=== PATIENT | female | born 1985 | race Caucasian/White ===

== ENCOUNTER → 2017-02-21 | Outpatient (CLI) | payer OTHER ==
[~2017-02-21] MED LIST: RANI150 PO; Z.0.BCPILL PO
[2017-02-21 14:59] LABS: HEMATOCRIT 37.5 % (35.0-46.0); MEAN CORPUSCULAR HEMOGLOBIN 29.1 PG (27.0-34.0); MEAN CORPUSCULAR HGB CONC 35.1 % (32.0-36.0); PLATELET COUNT 183 TH/MM3 (150-450); RED BLOOD COUNT 4.52 MIL/MM3 (4.00-5.30); RED CELL DISTRIBUTION WIDTH 13.3 % (11.6-17.2); REVIEW FLAG FINAL; WHITE BLOOD COUNT 8.1 TH/MM3 (4.0-11.0)
[2017-02-21 15:56] LABS: RUBELLA IGG ANTIBODY 16.9 IU/mL (10.0-500.0); RUBELLA STATUS IMMUNE (IMMUNE)
[2017-02-22 10:54] LABS: RAPID PLASMA REAGIN SCREEN NON-REACTIVE (NON-REACTVE)
== END ==
LOC: CLAB 13:58
PROVIDERS: ATTEND Obstetrics & Gynecology
DX: Z32.01 Encounter for pregnancy test, result positive (principal)
CPT/HCPCS: 36415; 85027; 86592; 86762; 86850; 86900; 86901; 87086; 87340

== ENCOUNTER → 2017-03-12 | Outpatient (CLI) | payer OTHER | LOC: CLAB 12:42 | PROVIDERS: ATTEND Obstetrics & Gynecology | DX: Z32.01 Encounter for pregnancy test, result positive (principal) | CPT/HCPCS: 36415; 81420 ==

== ENCOUNTER → 2017-04-20 | Outpatient (CLI) | payer OTHER ==
[2017-04-25 23:51] LABS: AFP SERUM 53.2 ng/mL (()); CALCULATED GESTATIONAL AGE 16.9 (())
== END ==
LOC: CLAB 13:55
PROVIDERS: ATTEND Obstetrics & Gynecology
DX: Z34.02 Encounter for supervision of normal first pregnancy, second trimester (principal); Z82.79 Family history of other congenital malformations, deformations and chromosomal abnormalities
CPT/HCPCS: 36415; 82105

== ENCOUNTER → 2017-06-18 | Outpatient (CLI) | payer OTHER ==
[2017-06-18 10:48] LABS: HEMATOCRIT 32.7 % (35.0-46.0); REVIEW FLAG FINAL
== END ==
LOC: CLAB 09:19
PROVIDERS: ATTEND Obstetrics & Gynecology
DX: Z34.02 Encounter for supervision of normal first pregnancy, second trimester (principal)
CPT/HCPCS: 36415; 82951; 85014; 85018

== ENCOUNTER → 2017-06-27 | Outpatient (CLI) | payer OTHER | LOC: CLAB 09:40 | PROVIDERS: ATTEND Obstetrics & Gynecology | DX: R73.09 Other abnormal glucose (principal) | CPT/HCPCS: 36415; 82951; 82952 ==

== ENCOUNTER 2017-09-29 05:05 | Inpatient (IN) | payer OTHER ==
[~2017-09-29] VITALS: Ht 170.2 cm; Wt 81.0 kg
[2017-09-29] VITALS (38 sets, daily range): BP systolic 92–121; BP diastolic 49–78; PULSE 72–170; RESP 16–18; TEMP 97.6–98.8; O2SAT 99–100
[2017-09-29] MEDS: LACTATED RINGER'S 1000 ML INJ 1,000 ML IV SCH ×2 (05:52→06:40)
[2017-09-29] MEDS ORDERED: LACTATED RINGER'S 1000 ML INJ 1,000 ML IV PRN (05:52)
--- NOTE | 2017-09-29 05:52 | HHI.HP ---
HPI Chief Complaint Contractions Date Seen: Sep 29, 2017 Time Seen: 05:45 Travel History International Travel<30 Days: No Contact w/Intl Traveler<30Days: No Known Affected Area: No History of Present Illness HPI Patient is 32-year-old white female at [address] Beach for care and presents complaining of contractions. Denies leakage or bleeding. heart rate tracing is reactive she is justin every 2 minutes Weeks Gestation: 40 Para: 0 : 1 Last Menstrual Period: Sep 29, 2017 History Social History Alcohol Use: No Tobacco Use: No Substance Abuse: No Allergies-Medications (Allergen,Severity, Reaction): Coded Allergies: No Known Allergies (Unverified , 08/30/16) Home Meds Reported Medications Ranitidine HCl (Zantac 150 Mg Tab) 150 Mg Tab, 150 MG PO, TAB 08/30/16 Miscellaneous ( Control Pills) Tab, 1 TAB PO DAILY, TAB 10/12/13 Review of Systems General / Constitutional: No: Fever, Weight Gain, Chills, Other Eyes: No: Diploplia, Blurred Vision, Visual changes, Pain, Photophobia HENT: No: Headaches, Vertigo, Lightheadedness Cardiovascular: No: Irregular Rhythm, Chest Pain or Discomfort, Palpitations, Tachycardia, Syncope, Varicosities, Edema, Cyanosis Respiratory: No: Cough, Short of Breath, Other Gastrointestinal: Abdominal Pain, No: Nausea, Vomiting, Diarrhea Genitourinary: No: Decreased Urinary Output, Oliguria Musculoskeletal: No: Limited ROM, Weakness, Cramping, Edema, Pain Skin: No Rash, No Itching, No Dryness, No Lumps, No Change in Pigmentation, No Change in Nails, No Alopecia, No Lesions Neurologic: No: Weakness, Dizziness, Syncope, Focal Abnormalities, Coordination Problem, Headache, Slurred Speech, Seizures Psychiatric: No: Depression, Suicidal Ideations, Homicidal Ideation Endocrine: No: Heat Intolerance, Cold Intolerance, Polydipsia, Polyuria, Other Physical Exam Narrative GENERAL: Well-nourished, well-developed patient. SKIN: Warm and dry. HEAD: Normocephalic and atraumatic. EYES: No scleral icterus. No injection or drainage. ENT: No nasal drainage noted. Mucous membranes pink. Airway patent. NECK: Supple, trachea midline. No JVD. CARDIOVASCULAR: Regular rate and rhythm without murmurs, gallops, or rubs. RESPIRATORY: Breath sounds equal bilaterally. No accessory muscle use. BREASTS: Bilateral exam showed no masses , no retractions, no nipple discharge. ABDOMEN/GI: Abdomen soft, non-tender, bowel sounds present, no rebound, no guarding Gravid to [-40] weeks size Fundal Height: [-40] GENITOURINARY: External Genitalia: intact and normal in appearance BUS glands: [-] Cervix: [-] Dilatation: [-5] Effacement: [-90] Station: [0-] Presentation: [vtx-] Membranes: [intact ] Uterine Contractions: [q 2 min-] FHT's: Category: [1-] Baseline: [-133] Reactive: [yes-] Variability: [mod-] Decels: [0-] EXTREMITIES: No cyanosis or edema. BACK: Nontender without obvious deformity. No CVA tenderness. NEUROLOGICAL: Awake and alert. Motor and sensory grossly within normal limits. Five out of 5 muscle strength in all muscle groups. Normal speech. Caprini VTE Risk Assessment Caprini VTE Risk Assessment: No/Low Risk (score <= 1) Caprini Risk Assessment Model Point Value = 1 Point Value = 2 Point Value = 3 Point Value = 5 Age 41-60 Minor surgery BMI > 25 kg/m2 Swollen legs Varicose veins or History of unexplained or recurrent spontaneous Oral contraceptives or hormone replacement Sepsis (< 1 month) Serious lung disease, including pneumonia (< 1 month) Abnormal pulmonary function Acute myocardial infarction Congestive heart failure (< 1 month) History of inflammatory bowel disease Medical patient at bed rest Age 61-74 Arthroscopic surgery Major open surgery (> 45 min) Laparoscopic surgery (> 45 min) Malignancy Confined to bed (> 72 hours) Immobilizing plaster cast Central venous access Age >= 75 History of VTE Family history of VTE Factor V Leiden Prothrombin [id number] Lupus anticoagulant Anticardiolipin antibodies Elevated serum homocysteine Heparin-induced thrombocytopenia Other congenital or acquired thrombophilia Stroke (< 1 month) Elective arthroplasty Hip, pelvis, or leg fracture Acute spinal cord injury (< 1 month) Prophylaxis Regimen Total Risk Factor Score Risk Level Prophylaxis Regimen 0-1 Low Early ambulation 2 Moderate Order ONE of the following: *Sequential Compression Device (SCD) *Heparin 5000 units SQ BID 3-4 Higher Order ONE of the following medications: *Heparin 5000 units SQ TID *Enoxaparin/Lovenox 40 mg SQ daily (WT < 150 kg, CrCl > 30 mL/min) *Enoxaparin/Lovenox 30 mg SQ daily (WT < 150 kg, CrCl > 10-29 mL/min) *Enoxaparin/Lovenox 30 mg SQ BID (WT < 150 kg, CrCl > 30 mL/min) AND/OR *Sequential Compression Device (SCD) 5 or more Highest Order ONE of the following medications: *Heparin 5000 units SQ TID (Preferred with Epidurals) *Enoxaparin/Lovenox 40 mg SQ daily (WT < 150 kg, CrCl > 30 mL/min) *Enoxaparin/Lovenox 30 mg SQ daily (WT < 150 kg, CrCl > 10-29 mL/min) *Enoxaparin/Lovenox 30 mg SQ BID (WT < 150 kg, CrCl > 30 mL/min) AND *Sequential Compression Device (SCD) Data Data Group B Strep: Negative Assessment/Plan Assessment and Plan This patient is a 32-year-old white female at 40 weeks gestation who presents in active labor. Her cervix is 5 cm 90% and 0 station, contractions are regular, heart rate tracing reactive Impression term intrauterine in active labor Plan is admission to hospital labor management and anticipate vaginal delivery Daniel Lew II, MD Sep 29, 2017 05:52
[2017-09-29] MEDS ORDERED: LIDOCAINE HCL 1% 50 ML VIAL I-DERMAL PRN (06:00)
[2017-09-29] MEDS ORDERED: LIDOCAINE HCL 1% 50 ML VIAL INFIL PRN (06:00)
[2017-09-29] MEDS ORDERED: SODIUM CHLORID 0.9% 500 ML INJ 500 ML IV PRN (06:00)
[2017-09-29] MEDS ORDERED: CITRIC ACID-SODIUM CITRATE LIQ 30 ML UDC PO SCH (06:00)
[2017-09-29] MEDS ORDERED: OXYTOCIN 30 UNITS-500ML PREMIX 500 ML IV ONE (06:00)
[2017-09-29] MEDS ORDERED: MINERAL OIL 10 ML VIAL TOPICAL PRN (06:00)
[2017-09-29 06:12] LABS: AUTOMATED NEUTROPHIL # 10.5 TH/MM3 (1.8-7.7); BASOPHIL # 0.1 TH/MM3 (0-0.2); BASOPHIL % 0.7 % (0.0-2.0); EOSINOPHIL # 0.3 TH/MM3 (0-0.4); EOSINOPHIL % 2.2 % (0.0-4.0); HEMATOCRIT 36.7 % (35.0-46.0); HEMO FLAGS DIFF FINAL; LYMPH % 18.4 % (9.0-44.0); LYMPHOCYTE # 2.7 TH/MM3 (1.0-4.8); MEAN CELL VOLUME 84.7 FL (80.0-100.0); MEAN CORPUSCULAR HEMOGLOBIN 29.9 PG (27.0-34.0); MEAN CORPUSCULAR HGB CONC 35.4 % (32.0-36.0); MONO % 6.1 % (0.0-8.0); NEUT % 72.6 % (16.0-70.0); PLATELET COUNT 146 TH/MM3 (150-450); RED BLOOD COUNT 4.34 MIL/MM3 (4.00-5.30); RED CELL DISTRIBUTION WIDTH 14.7 % (11.6-17.2); WHITE BLOOD COUNT 14.5 TH/MM3 (4.0-11.0)
[2017-09-29] MEDS ORDERED: SODIUM CHLOR 0.9% 1000 ML INJ 1,000 ML IV PRN (06:12)
[2017-09-29] MEDS ORDERED: PRENTAB7 PO (06:20)
[2017-09-29 07:01] LABS: BLOOD, URINE TRACE (NEG); GLUCOSE,URINE NEG (NEG); KETONE, URINE NEG (NEG); NITRITE,URINE NEG (NEG); PH, URINE 6.5 (5.0-8.5); URINE COLOR YELLOW (YELLW/STRAW)
[2017-09-29 07:34] LABS: RBC, URINE 0-3 /hpf (0-3); SQUAMOUS EPITHELIAL CELL URINE 0-5 /hpf (0-5); WBC, URINE 0-2 /hpf (0-5)
[2017-09-29 07:35] LABS: BACTERIA, URINE FEW /hpf; COMMENT (UR) CULT NOT INDICATED; CULTURE IF INDICATED CULT NOT INDICATED
[2017-09-29] MEDS ORDERED: fentaNYL 2MCG-BUPIV 0.125% INJ 100 ML ONE (11:12)
[2017-09-29] MEDS ORDERED: ePHEDrine/NS 25 MG/5 ML SYR ONE (11:13)
--- NOTE | 2017-09-29 11:20 | PD.LABORPN ---
Subjective Subjective labor and progression to 7 cm now AROM with MSF light Objective Vital Signs Vital Signs Date Time Temp Pulse Resp B/P (MAP) Pulse Ox O2 Delivery O2 Flow Rate FiO2 09/29/17 09:59 81 104/57 (73) 09/29/17 09:08 72 97/53 (68) 09/29/17 08:00 75 18 09/29/17 07:48 170 106/75 (85) 09/29/17 07:45 97.9 Objective Pelvic Exam: Cervix: [-] Dilatation: 7 cm Effacement: 90 Station: 0 Presentation: vtx Membranes: AROM Uterine Contractions: Q2 FHT's: Category: 1 Baseline: [-] Reactive: [-] Variability: [-] Decels: [-] Weeks Gestation: 40 Gest Age Assessed Date: Sep 29, 2017 Gest Age Assessed Time: 10:30 Pt started active labor?: Yes Active labor start date: Sep 29, 2017 Active labor start time: 06:00 Medical induction of labor?: No Artificial rupture of membrane: Yes Artificial ROM date: Sep 29, 2017 Artifical ROM time: 10:50 Assessment/Plan Problem List: (1) 39 weeks gestation of ICD Codes: Z3A.39 - 39 weeks gestation of Assessment and Plan doing well Miguel Cevallos MD Sep 29, 2017 11:20
[2017-09-29] MEDS ORDERED: ePHEDrine/NS 25 MG/5 ML SYR IV PUSH PRN (12:15)
[2017-09-29] MEDS ORDERED: NO SYSTEM NARCOTICS PRN (12:15)
[2017-09-29] MEDS ORDERED: fentaNYL 2MCG-BUPIV 0.125% 100 ML EPIDURAL SCH (12:15)
[2017-09-29] MEDS ORDERED: DO NOT ADMINISTER ANTICOAGULANTS PRN (12:15)
--- NOTE | 2017-09-29 13:44 | PD.OB.DELI ---
Weeks gestation: 40 Gest age assessed date: Sep 29, 2017 Gest age assessed time: 10:30 Pt started active labor?: Yes Active labor start date: Sep 29, 2017 Active labor start time: 06:00 Medical induction of labor?: No Artificial rupture of membrane: Yes Artificial ROM date: Sep 29, 2017 Artifical ROM time: 10:50 Anesthesia: Epidural Episiotomy: Right mediolateral Vaginal Delivery: Normal, Spontaneous Presentation: Occiput anterior Nuchal Cord: None Delayed cord clamping (45 sec): Yes : Male, Single Delivery date: Sep 29, 2017 Delivery time: 13:21 One Minute : 8 Five Minute : 9 Weight: 7#14 oz Placenta: Spontaneous delivery, Intact, 3 vessel cord Laceration: Episiotomy, 2 deg Repair: Chromic running Estimated blood loss: 300 Miguel Cevallos MD Sep 29, 2017 13:44
[2017-09-29] MEDS ORDERED: DIPHTH/TETANUS/ACEL PERTUSSIS (BOOSTER) 0.5 ML VIAL/PFS IM ONE (16:00)
[2017-09-29] MEDS ORDERED: MEASLES, MUMPS, RUBELLA VACCINE 0.5 ML VIAL SQ ONE (16:00)
[2017-09-29] MEDS ORDERED: WITCH HAZEL 50%/GLYCERIN 12.5% 40 PAD JAR TOPICAL PRN (16:45)
[2017-09-29] MEDS ORDERED: DOCUSATE SODIUM 50 MG/SENNA 8.6 MG TAB PO PRN (16:45)
[2017-09-29] MEDS ORDERED: ZOLPIDEM TARTRATE 5 MG TAB PO PRN (16:45)
[2017-09-29] MEDS ORDERED: ALUMINUM/MAGNESIUM/SIMETH 30 ML CUP PO PRN (16:45)
[2017-09-29] MEDS ORDERED: ONDANSETRON ODT 4 MG TAB PO PRN (16:45)
[2017-09-29] MEDS ORDERED: ACETAMINOPHEN 325 MG TAB PO PRN (16:45)
[2017-09-29] MEDS ORDERED: BENZOCAINE 20% TOPICAL SPRAY 60 ML CAN TOPICAL PRN (16:45)
[2017-09-29] MEDS ORDERED: OXYTOCIN 30 UNITS-500ML PREMIX 500 ML IV SCH (16:45)
[2017-09-29] MEDS: IBUPROFEN 600 MG TAB PO PRN (23:07)
[2017-09-30] MEDS: IBUPROFEN 600 MG TAB PO PRN ×2 (08:58→16:50)
--- NOTE | 2017-09-30 10:11 | HHI.OB ---
Subjective Post Day: 1 Remarks doing well Objective Vitals/I&O Vital Signs Date Time Temp Pulse Resp B/P (MAP) Pulse Ox O2 Delivery O2 Flow Rate FiO2 09/29/17 20:00 97.6 83 18 110/70 (83) 99 09/29/17 16:45 98.2 76 18 106/69 (81) 100 09/29/17 15:59 18 09/29/17 15:31 90 09/29/17 15:19 16 09/29/17 15:15 73 120/73 (89) 09/29/17 15:05 98.8 09/29/17 15:05 16 09/29/17 15:00 81 104/64 (77) 09/29/17 14:50 16 09/29/17 14:45 83 111/62 (78) 09/29/17 14:00 75 112/78 (89) 09/29/17 13:45 74 115/61 (79) 09/29/17 13:33 18 09/29/17 13:31 82 116/73 (87) 09/29/17 13:10 74 09/29/17 13:05 78 09/29/17 13:00 85 09/29/17 13:00 86 109/52 (71) 09/29/17 12:55 92 09/29/17 12:50 83 09/29/17 12:45 76 92/49 (63) 09/29/17 12:45 78 09/29/17 12:30 85 102/58 (73) 09/29/17 12:30 87 09/29/17 12:25 89 09/29/17 12:20 80 09/29/17 12:15 79 09/29/17 12:15 86 98/54 (69) 09/29/17 12:00 77 09/29/17 12:00 91 107/63 (78) 09/29/17 11:55 95 09/29/17 11:55 97 104/52 (69) 09/29/17 11:50 87 108/54 (72) 09/29/17 11:50 80 09/29/17 11:45 80 09/29/17 11:45 81 109/54 (72) 09/29/17 11:40 98.1 82 16 119/66 (83) 09/29/17 11:40 77 11/18/17 11:35 77 121/76 (91) 09/29/17 11:35 75 09/29/17 11:33 74 121/76 (91) 09/29/17 11:30 79 09/29/17 11:22 18 09/29/17 11:21 72 108/61 (77) Objective Remarks GENERAL: Well-nourished, well-developed patient. ABDOMEN/GI: Abdomen soft, non-tender. Fundus: Firm, non-tender at umbilicus. GENITOURINARY: Light to moderate bleeding. EXTREMITIES: No cyanosis or edema, non-tender, without signs of DVT. Medications and IVs Current Medications Medications (Trade) Dose Ordered Sig/Yoni Route Start Time Stop Time Status Last Admin (Tylenol) 650 mg Q4H PRN PO 09/29/17 16:45 (Motrin) 600 mg Q6H PRN PO 09/29/17 16:45 09/30/17 08:58 (Americaine 20% Top Spr) 1 spray Q4H PRN TOPICAL 09/29/17 16:45 09/29/17 17:21 (Tucks Pads) 1 applic Q6H PRN TOPICAL 09/29/17 16:45 09/29/17 17:21 (Thais-Colace) 2 tab Q12H PRN PO 09/29/17 16:45 (Ambien) 5 mg HS PRN PO 09/29/17 16:45 (Mag-Al Plus Susp Liq) 15 ml Q8H PRN PO 09/29/17 16:45 (Zofran Odt) 4 mg Q6H PRN PO 09/29/17 16:45 Assessment/Plan Problem List: (1) 39 weeks gestation of ICD Codes: Z3A.39 - 39 weeks gestation of Assessment and Plan doing well Miguel Cevallos MD Sep 30, 2017 10:11
--- NOTE | 2017-10-01 07:36 | HHI.DCPOC ---
Discharge Care Plan Diagnosis: (1) Spontaneous vaginal delivery Report Symptoms to Your Doctor -Temperature above 100.5 degrees -Redness, of incision or excessive or foul smelling drainage -Unusual pain or calf pain -Increased vaginal bleeding -Painful or difficulty urinating -Feelings of extreme sadness or anxiety after 2 weeks Goals to Promote Your Health * To prevent worsening of your condition and complications * To maintain your health at the optimal level Directions to Meet Your Goals Take your medications as prescribed Follow your dietary instruction Follow activity as directed Ensure plenty of rest for recovery Drink fluids for hydration Keep your appointments as scheduled Take your immunizations and boosters as scheduled If your symptoms worsen call your PCP, if no PCP go to Urgent Care Center or Emergency Room Smoking is Dangerous to Your Health. Avoid second hand smoke Call the 24-hour crisis hotline for domestic abuse at Miguel Cevallos MD Oct 01, 2017 07:36
--- NOTE | 2017-10-01 07:37 | HHI.DS ---
Admission Date Sep 29, 2017 at 05:49 Discharge Date: Oct 01, 2017 Admitting Diagnosis Diagnosis: (1) 39 weeks gestation of ICD Codes: Z3A.39 - 39 weeks gestation of Delivery Date: Sep 29, 2017 Vaginal Delivery: Normal Infant: Male, Single Brief History Patient is 32-year-old white female at [address] Beach for care and presents complaining of contractions. Denies leakage or bleeding. heart rate tracing is reactive she is justin every 2 minutes Hospital Course labor and delivery day of admit pp doing well dc home Pt Condition on Discharge: Good Discharge Disposition: Discharge Home Discharge Instructions Diet Instructions: As Tolerated, No Restrictions Activities You Can Perform: Regular-No Restrictions, See Additionl Instruction Follow up Referrals: MRI CT TECH - 2 Weeks @ [facility] with Steph Beach MD Continued Medications: Pnv No.95/Ferrous Fum/Folic AC ( Vitamins Tablet) 28 Mg Iron-800 Mcg Tablet 1 TAB PO DAILY Ranitidine HCl (Zantac 150 Mg Tab) 150 Mg Tab 150 MG PO, TAB Miguel Cevallos MD Oct 01, 2017 07:37
== END 2017-09-30 18:50 | disposition home or self-care (01) | DRG 775 ==
LOC: HOBED 05:05 → H2EA 05:49 → H1EA 15:55
PROVIDERS: ADMIT Obstetrics & Gynecology; ATTEND Obstetrics & Gynecology
PROC: 10E0XZZ Delivery of Products of Conception, External Approach (ICD-10-PCS; principal; 2017-09-29)
PROC: 0W8NXZZ Division of Female Perineum, External Approach (ICD-10-PCS; 2017-09-29)
PROC: 10907ZC Drainage of Amniotic Fluid, Therapeutic from Products of Conception, Via Natural or Artificial Opening (ICD-10-PCS; 2017-09-29)
PROC: 00HU33Z Insertion of Infusion Device into Spinal Canal, Percutaneous Approach (ICD-10-PCS; 2017-09-29)
PROC: 3E0R3BZ Introduction of Anesthetic Agent into Spinal Canal, Percutaneous Approach (ICD-10-PCS; 2017-09-29)
DX: O80 Encounter for full-term uncomplicated delivery (principal); Z37.0 Single live birth; Z3A.40 40 weeks gestation of pregnancy
CPT/HCPCS: 80307; 81001; 85025; 86850; 86900; 86901; J7120

== ENCOUNTER → 2017-10-03 | Outpatient (CLI) | payer OTHER ==
[~2017-10-03] MED LIST changes: +PRENTAB7 PO; -Z.0.BCPILL PO
== END ==
LOC: CLAB 14:17
PROVIDERS: ATTEND Obstetrics & Gynecology
DX: N39.0 Urinary tract infection, site not specified (principal); R35.0 Frequency of micturition
CPT/HCPCS: 87086